=== PATIENT | male | born 2005 | race Caucasian/White ===

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

== ENCOUNTER 2024-02-09 16:08 | Emergency (ER) | payer MEDICAID ==
[~2024-02-09] VITALS: Ht 172.7 cm; Wt 72.0 kg
[2024-02-09 16:14] VITALS: BP 136/67; O2SAT 99
[2024-02-09] MEDS ORDERED: NAPR-681 PO (17:08)
[2024-02-09] MEDS ORDERED: P50 MT (17:08)
[2024-02-09] MEDS ORDERED: D-ME473S50 PO (17:08)
[2024-02-09 17:15] VITALS: PULSE 78; RESP 18; TEMP 37.05852; O2SAT 100
== END 2024-02-09 17:21 | disposition home or self-care (01) ==
LOC: ER 16:08
DX: T70.0XXA Otitic barotrauma, initial encounter (principal); H93.12 Tinnitus, left ear; J06.9 Acute upper respiratory infection, unspecified; X58.XXXA Exposure to other specified factors, initial encounter; Y93.89 Activity, other specified; Y92.89 Other specified places as the place of occurrence of the external cause; Y99.8 Other external cause status
CPT/HCPCS: 99283